=== PATIENT | female | born 1975 | race Caucasian/White ===

== ENCOUNTER → 2017-12-17 15:01 | Outpatient (CLI) | payer OTHER, SELFPAY ==
[2017-12-17 17:40] LABS: Cholesterol 147 mg/dL (200); Glucose 86 mg/dL (74-106); High Density Lipoprotein 36 mg/dL; Triglycerides 110 mg/dL; Very Low Density Lipoprotein 22 mg/dL (5-40)
== END ==
PROVIDERS: Family Provider Family Medicine; PCP Family Medicine; Visit Provider Family Medicine
DX: Z13.1 Encounter for screening for diabetes mellitus (principal); Z13.220 Encounter for screening for lipoid disorders
CPT/HCPCS: 36415; 80061; 82947

== ENCOUNTER 2018-02-25 11:55 | Emergency (ER) | payer OTHER, SELFPAY ==
[2018-02-25 11:56] VITALS: BP 147/69; PULSE 104; RESP 16; TEMP 36.9; O2SAT 99; BMI 33.3
--- NOTE | 2018-02-25 12:28 | ED.VIS.GEN ---
History of Present Illness Chief Complaint: Back Informant: Patient Onset: Month(s) - 1-2 Context: Gradual Onset - does not recall any injury/fall Timing: Continuous Quality: ache/burn Location: R buttock and down RLE Current Severity: Mild Maximum Severity: Severe Worsened by: walking and at times sitting Relieved by: nothing in particular. NSAIDS not helping acutely. Associated Symptoms: no bowel or bladder dysfunction. occ tingling right foot. no saddle numbnes Narrative: Has seen her doctor several times for this problem, which she describes as sciatica pain. Has never had this before, but it has been going on for a month or 2 now. Seem to get a little worse over the weekend although she has no new symptoms. Refer to physical therapy and getting ready to start it tomorrow, but referred here today because her pain was worse. She states that it seems to be random, but right now, it really is not bothering her very much. Past Medical History - Allergies and Home Meds Allergies/Adverse Reactions: Allergies No Known Allergies Allergy (Verified 02/25/18 11:58) Home Medications: Home Medications Medication Instructions Recorded traMADol [Ultram] 50 mg PO Q4H PRN PRN 3 Days #20 tab 02/25/18 Primary Care Physician: Heriberto Kennedy MD [Primary Care Provider] - Past Medical History: None Smoking Status: Never smoker Drugs: None Review of Systems All systems negative except as indicated Musculoskeletal: Reports: Back pain Neurological: Reports: Parasthesia, Numbness. Denies: Headache, Weakness Physical Exam Vital Signs/Narrative: Vital Signs Temp Pulse Resp BP Pulse Ox 02/25/18 11:56 98.4 F 104 H 16 147/69 H 99 Inital Vital Signs reviewed: Yes General: Well nourished, Well developed, - - nad Head: Normocephalic, Atraumatic Back: Normal Inspection - no rash. Negative for: Nontender - mildly tender in right piriformis; otherwise NT throughout, CVA tenderness, Spinal tenderness Extremities: Nontender - negative bilat straight leg raises while sitting, including neg cross SLR, No edema, - - negative bilat straight leg raises while sitting, including neg cross SLR> Skin: Normal color, No rash Neurological: Alert, Oriented x3, Cranial nerves II-XII grossly intact, Normal Strength, Normal Sensation, Normal Gait Psychological: Normal affect Diagnostic/Tx/Re-eval - Medical Decision Making We discussed pluses and minuses of Ultram, which I think is a reasonable prescription to write her for now, to use as needed for breakthrough pain, advised also to continue using NSAIDs. She is comfortable with that plan. She does not require any medication here since her pain is minimal right now. ED Disposition - Plan for ED Patient: Disposition: Home or Assisted Living Chief Complaint: Back Diagnosis: Sciatica, right side Instructions: ED Sciatica Prescriptions: traMADol [Ultram] 50 mg PO Q4H PRN PRN 3 Days #20 tab PRN Reason: Pain Referrals: Heriberto Kennedy MD [Primary Care Provider] - 1 Week if not improving
== END 2018-02-25 12:50 | disposition home or self-care (01) ==
LOC: ED 12:40
PROVIDERS: Emergency Provider Emergency Medicine; Family Provider Family Medicine; PCP Family Medicine
DX: M54.41 Lumbago with sciatica, right side (principal)
CPT/HCPCS: 99282

== ENCOUNTER 2018-03-15 08:00 | Outpatient (RCR) | payer OTHER, SELFPAY ==
--- NOTE | 2018-02-26 16:01 | HP.PTEVAL_ITS ---
Patient's Visit Information TEREZA GUERRA is a 42 year old F referred to Physical Therapy by Heriberto Kennedy MD with a diagnosis of sciatica. Date of Evaluation: 02/26/18 Physical Therapist: Elyssa Long - Visit Plan Frequency: 2-3x /Week Duration: 4-6 Weeks Plan: 2-3X/ week for 4-6 weeks for centralization of symptoms, core stability, psotural exercises, HEP and modalities PRN - Subjective Subjective: Pt reports taht she has had R sciatic pain on R side since mid december. She took a course of prenizone and did not help at all. She has been on 600 mg IBPRo 3X/ day since mid last week. She has been doing SKC, and piriformis sitting in chair, lunge stretch on floor and the pain continues to persist. It is worse in the morning and by late afternoon gets worse. Also did some chiropractor and did not work. Now ordering PT. The pain is in R LB and hip and raidiates into calf and the R foot gets tingly and not completely numb. Severe in mornings that she can not walk until she gets it stretched out. is considering MRI if PT does not help. She did go to the ER yesterday and they gave her Ultram and told her to do PT. 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 Pt is sleeping intermittant and tries to sleep with pillow under the knees or between knees. Stairs: pain comes and goesfor no rhyme or reason. Standing is better than sitting. She sleeps on her back. Pt feels she shifts her madan to her L leg with gait. - Pain Back pain Pain Intensity (Out of 10): 4 Pain Intensity Range: 10 R hip pain Pain Intensity (Out of 10): 4 Pain Intensity Range: 10 R calf pain Pain Intensity (Out of 10): 5 - Objective Patella DTr's R 1+/3 and L 2+/3. Trunk AROM: flexion 100%, Ext 25%, SB B 75%, Rot B 75%. LE MMT: hip flex B 4/5, Knee flex B 4/5, knee ext B 4/5, R hip abd 4-/5 and L 4/5, hip ext B 4-/5. Prone lying increased R sided buttock pain and across LB. Prone lying with 1 pillow under the abdomin.... pain in the lateral thigh and maybe a slight feeling the calf. Prone lying wth 2 pillows under abdomin... decreased R calf pain and pain stayed R buttock and L-spine pain. Had pt lye on 2 pillows under abdomin with E-stim and ice X 15 min in Prone... pt got up and had just R hip pain - Goals Goal 1:: I HEP Goal Time Frame: 4-6 Weeks Goal 2:: Be able to get up in the morning with less than 5/10 pain and be able to start day quicker Goal Time Frame: 4-6 Weeks Goal 3:: Sit with upright posture during treatment sessions. Goal Time Frame: 4-6 Weeks Goal 4:: Be able to sit painfree for about 30 min before any hint of pain or having to change positions comes on. Goal Time Frame: 4-6 Weeks - Rehabilitation Potential Rehabilitation Potential: Good - Anticipated Interventions Patient/Client Instruction: Educate patient on: Condition, Plan of Care For the Purpose of:: To decrease pain, To decrease swelling/inflammation, To increase ROM, To improve nutrient delivery to tissue, To improve muscle performance and motor function, To improve ability to perform ADL's, To increase tolerance to activity/condition/position, To improve performance and independence with ADL's, To improve health of tissue, To decrease soft tissue restriction, To increase flexibility/ROM Therapeutic Exercise to Include: Strength training, Body mechanics, Postural training, Neuromotor development, Active ROM, Dynamic Lumbar Stabilization, Chey Exercises For the Purpose of:: To decrease pain, To decrease swelling/inflammation, To increase ROM, To improve nutrient delivery to tissue, To increase oxygenation perfusion, To improve muscle performance and motor function, To improve ability to perform ADL's, To increase tolerance to activity/condition/position, To improve ability of physical actions for home/community/work/leisure Manual Therapy Techniques to Include: Mobilization, Soft tissue mobilization For the Purpose of:: To decrease pain, To decrease swelling/inflammation, To increase ROM, To improve nutrient delivery to tissue, To increase oxygenation perfusion, To improve muscle performance and motor function, To improve ability to perform ADL's, To increase tolerance to activity/condition/position, To decrease soft tissue restriction IF ES: Yes Cryotherapy (ice pack, ice massage): Yes Thermo therapy (hot pack): Yes Ultrasound (thermal/non thermal): Yes For the Purpose of:: To decrease pain, To decrease swelling/inflammation, To increase ROM, To improve nutrient delivery to tissue, To improve muscle performance and motor function Thank you for the opportunity to evaluate your patient. For Medicare and Medicare HMO plans, please review the plan of care and approve it. It will need to be FAXED BACK to us at [phone] for Medicare purposes. Please let me know if there are questions or concerns regarding this plan of care. Physician Signature: Date:
--- NOTE | 2018-03-15 08:25 | HP.PTDCSUM ---
HP - PT D/C Summary It has been my pleasure to treat TEREZA GUERRA under orders from Heriberto Kennedy MD, for the diagnosis of sciatica for a total of 6 visit(s). Discharge Date: Please see the following information for a summary of their discharge status. - Subjective Subjective: Pt has seen a difference with mattress and box spring. Pt reports that she was trying to sleep the last night and tried to lay on side with pillow between knees and pain was all the way down the leg and into the toes with tingling and she could not get it to calm down. Pt reports that now she is not crawling out of bed but that is all that has changed. - Pain Back pain Pain Intensity (Out of 10): 4 R hip pain Pain Intensity (Out of 10): 4 R calf pain Pain Intensity (Out of 10): 2 - Overall Improvement % Improvement: 10 - Objective Objective/Function: + SLUMP test. -SLR test. Pt geels gastroc towel stretch. Trunk AROM: flexion 100%, Ext 50%, SB B 75% - Goals Goal 1:: I HEP Goal Progress: Goal Met Goal 2:: Be able to get up in the morning with less than 5/10 pain and be able to start day quicker Goal Progress: Not Progressing Goal 3:: Sit with upright posture during treatment sessions. Goal Progress: Progressing Goal 4:: Be able to sit painfree for about 30 min before any hint of pain or having to change positions comes on. Goal Progress: Progressing - Plan Plan: Return back to family physician for possible MRI/reassessment. We are able to manipulate her pain and make it a little better but it always comes back. Pt to continue with LAQ nerve root stretches, centralization for temp pain relief, and core stability. Will hold chart open until after physician reassessment. - D/C Information If there are questions or concerns regarding this patient's physical therapy, please feel free to call me at [phone]. Thank you for the referral of this patient. Sincerely, Elyssa Long
== END 2018-03-15 11:45 | disposition home or self-care (01) ==
LOC: PT 08:00
PROVIDERS: Family Provider Family Medicine; PCP Family Medicine; Visit Provider Family Medicine
DX: M54.31 Sciatica, right side (principal)
CPT/HCPCS: 97014; 97110; 97140; 97161; 97530; G0283

== ENCOUNTER → 2018-03-20 15:52 | Outpatient (CLI) | payer OTHER, SELFPAY ==
--- NOTE | 2018-03-20 11:12 | VDLE_ITS ---
Reason For Study: RLE pain/swelling RIGHT LEFT GSV is normal. CFV is compressible, spontaneous, phasic, CFV is compressible, spontaneous, phasic, competent, and demonstrates normal competent and demonstrates normal augmentation. augmentation. FV is compressible, spontaneous, phasic, competent and demonstrates normal augmentation. POP V is compressible, spontaneous, phasic, competent and demonstrates normal augmentation. T/P Trunk is compressible. PTV is compressible. RT PerV is compressible. Procedure Exam performed in department. The exam was diagnostic. A preliminary report was called and/or faxed to Dr. Kennedy @ [phone] @ 4:10 pm. Interpretation Summary Deep veins of the right lower extremity are patent and compressible segmentally. There is no evidence of right lower extremity deep vein thrombosis. Valvular competence appears intact within the proximal deep venous system on the right . The right greater saphenous vein appears patent and compressible segmentally. Ordering Physician: Heriberto Kennedy Referring Physician: Heriberto Kennedy Performed By: Awa Arenas, PHILIPPE, RVT
--- NOTE | 2018-03-20 15:52 | DT_ITS ---
This patient was seen during an EMR downtime March 18, 2018 - March 25, 2018. This patient may have a combination of paper and electronic documentation or all paper documentation. All documentation is viewable within the e-chart portion of [facility] for each patient visit.
== END ==
PROVIDERS: Family Provider Family Medicine; PCP Family Medicine; Visit Provider Family Medicine
DX: M79.604 Pain in right leg (principal); R60.9 Edema, unspecified
CPT/HCPCS: 93971

== ENCOUNTER → 2018-03-27 17:46 | Outpatient (CLI) | payer OTHER, SELFPAY ==
--- NOTE | 2018-03-27 17:51 | MRI_ITS ---
STUDY: MRI LUMBAR SPINE WITHOUT CONTRAST REASON FOR EXAM: Female, 42 years old. Low back pain radiating down right leg TECHNIQUE: Standardized fat and water weighted pulse sequences were obtained in the sagittal and axial planes. COMPARISON: None FINDINGS: T12-L1: Normal endplates. Normal disc height, hydration and morphology. Normal bilateral facet joints. Normal central canal and bilateral lateral recesses. Normal bilateral intervertebral neural foramina. Normal lumbar lordosis. There is no substantial scoliosis. Normal conus medullaris that terminates at the L1-2: Normal endplates. Normal disc height, hydration and morphology. Normal bilateral facet joints. Normal central canal and bilateral lateral recesses. Normal bilateral intervertebral neural foramina. L2-3: Normal endplates. Normal disc height, hydration and morphology. Normal bilateral facet joints. Normal central canal and bilateral lateral recesses. Normal bilateral intervertebral neural foramina. L3-4: Normal endplates. Normal disc height, hydration and morphology. Normal bilateral facet joints. Normal central canal and bilateral lateral recesses. Normal bilateral intervertebral neural foramina. L4-5: Grade 1 spondylolisthesis. Normal endplates. Normal disc height, hydration and minor bulging disc osteophyte complex.. Bilateral facet arthropathy and small synovial cyst on the right.. Normal central canal. Moderate left lateral recess stenosis and severe narrowing on the right exaggerated by shortened pedicles.. Normal bilateral intervertebral neural foramina. L5-S1: Normal endplates. Normal disc height, desiccation and small right posterolateral/foraminal disc protrusion.. Minor facet arthropathy.. Normal central canal. Moderate to severe right lateral recess and severe foraminal stenosis. Normal visualized sacral ala. Small ovarian cyst is noted on the right. Normal visualized paraspinous soft tissue structures. MRI/Spine Lumbar (Routine) IMPRESSION: Spinal stenosis at L4-5 greater on the right secondary to disc disease and bony hypertrophy as well as a right sided synovial cyst Right lateral recess and neural foraminal stenosis at L5-S1 due to right posterolateral/foraminal disc protrusion and minor facet arthropathy Other findings as above Electronically Signed: Sathya Ray MD at 20:07 EDT , Service support ,
== END ==
PROVIDERS: Family Provider Family Medicine; PCP Family Medicine; Visit Provider Family Medicine
DX: M54.32 Sciatica, left side (principal)
CPT/HCPCS: 72148

== ENCOUNTER → 2018-04-23 08:26 | Outpatient (CLI) | payer OTHER, SELFPAY ==
--- NOTE | 2018-04-23 08:30 | BD_ITS ---
STUDY: DUAL ENERGY X-RAY ABSORPTIOMETRY / DXA REASON FOR EXAM: Female, 42 years old. Use of steroid inhaler. TECHNIQUE: Bone Mineral Density (BMD) measurements of lumbar spine and bilateral hips were obtained. COMPARISON: None. FINDINGS: Lumbar Spine (L1-L4): g/cm2 (1.347) / T-score (1.4) / Z-score (1.4) Findings are suggestive of normal bone density with a low fracture risk. Left Femur Total: g/cm2 (1.188) / T-score (1.4) / Z-score (1.7) Left Femoral Neck: g/cm2 (1.070) / T-score (0.2) / Z-score (0.8) Right Femur Total: g/cm2 (1.150) / T-score (1.1) / Z-score (1.4) Right Femoral Neck: g/cm2 (1.091) / T-score (0.4) / Z-score (0.9) BD/Dexa Bone Density Study IMPRESSION: The patient is considered normal as outlined below according to World Eric Organization (WHO) criteria with a low fracture risk. Reference Information: The T-score is the number of standard deviations above or below the standard which is normal for young adults at their peak bone mineral density. The World Health Organization (WHO) interprets the T-scores as follows: Above -1 Normal bone density Between -1 and -2.5 Osteopenia Equal to / or below -2.5 Osteoporosis As a practical clinical guideline, osteopenia may be graded as follows: Mild -1 through -1.5 Moderate -1.6 through -2.0 Severe -2.1 through -2.4 The Z-score is the number of standard deviations above or below age-matched controls. A Z-score of less than -1.5 would be considered abnormal. References: 1. NIH Osteoporosis and Related Bone Diseases http://www.osteo.org 2. International Society for Clinical Densitometry http://www.iscd.org 3. National Osteoporosis Foundation http://www.nof.org Electronically Signed: J Luis Kaye MD at 9:19 EDT Tel [phone], Service support ,
== END ==
PROVIDERS: Family Provider Family Medicine; PCP Family Medicine; Visit Provider Orthopaedic Surgery
DX: M89.9 Disorder of bone, unspecified (principal)
CPT/HCPCS: 77080

== ENCOUNTER 2018-09-04 10:30 | Outpatient (RCR) | payer OTHER, SELFPAY ==
--- NOTE | 2018-06-26 18:58 | HP.PTEVAL_ITS ---
Patient's Visit Information TEREZA GUERRA is a 42 year old F referred to Physical Therapy by Zuri Mccormick, with a diagnosis of s/p fusion of L4-L5 and hemilaminectomy L3 and L5 and S1 on Jun 05, 2018.. Date of Evaluation: 06/26/18 Physical Therapist: Elyssa Long - Visit Plan Frequency: 2x /Week Duration: 2 Months Plan: 2-3X/ week for 4- 6 weeks for. ++Able to start ROM at week 3 (today) and wean brace as tolerated. - Subjective Subjective: The whole month of March she could hardly get out of bed and she had an MRI and her L4 was slipped fw and she had a HD. She had a fusion and cage Jun 05, 2018. She is feeling ok at this point. She gets tired and sore. She has been walking. She is not allowed to twist, bend or lifting greater than 10# . She goes back to see Jul 18. She is wearing a brace while she is up. She has no leg pain. By the end of the day she will have a little tingling in her foot and not as bad as what it was in the Spring. Stairs: she has a ranch and does one or two steps in and out of the house and has not attempted to go down to the basement. She is doing ok getting in and out of the shower and still uses the seat. She has not driven yet but is able to when she feels comfortable. She is not sleeping at night because of pain and discomfort and usually gets a fresh ice pack...she is sleeping in her bed. - Pain back Pain Intensity (Out of 10): 4 - Objective - SLR B. 0/3 patellar DTR's. Trunk AROM: flexion 15%, ext (less than neutral) , SB B 15%. Gait: very guarded with no trunk movement, short stride decreased hip extension. LE MMT: able to do 50% normal ROM bridge, Hip abd B 4-/5, hip flex B 4-/5, B knee ext 4/5, B knee flex 4/5. Able to heel and toe raise. Stairs: up and down recip with a railing. Rolling: very guarded and slow to transition. - Goals Goal 1:: I HEP Goal Time Frame: 4-6 Weeks Goal 2:: Be able to sleep through the night without pain. Goal Time Frame: 4-6 Weeks Goal 3:: Be able to walk up and down the stairs without a railing recip Goal Time Frame: 4-6 Weeks Goal 4:: Be able to RTW without pain Goal Time Frame: 4-6 Weeks Goal 5:: Increase trunk AROM to 75% normal ROM Goal Time Frame: 6-8 Weeks - Rehabilitation Potential Rehabilitation Potential: Good - Anticipated Interventions Patient/Client Instruction: Educate patient on: Condition, Plan of Care For the Purpose of:: To decrease pain, To decrease swelling/inflammation, To increase ROM, To improve nutrient delivery to tissue, To improve muscle performance and motor function, To improve ability to perform ADL's, To increase tolerance to activity/condition/position, To improve performance and independence with ADL's, To improve gait and locomotor functions, To improve health of tissue, To decrease soft tissue restriction, To increase flexibility/ ROM Therapeutic Exercise to Include: Strength training, Body mechanics, Postural training, Flexibilty training, Gait and locomotor training, Neuromotor development, Active ROM, Dynamic Lumbar Stabilization For the Purpose of:: To decrease pain, To decrease swelling/inflammation, To increase ROM, To improve nutrient delivery to tissue, To increase oxygenation perfusion, To improve muscle performance and motor function, To improve ability to perform ADL's, To increase tolerance to activity/condition/position, To improve performance and independence with ADL's, To decrease level of supervision to perform tasks, To improve ability of physical actions for home/ community/work/leisure, To improve gait and locomotor functions, To improve health of tissue, To decrease soft tissue restriction, To increase flexibility/ ROM IF ES: Yes Cryotherapy (ice pack, ice massage): Yes Thermo therapy (hot pack): Yes For the Purpose of:: To decrease pain, To decrease swelling/inflammation, To increase ROM, To improve nutrient delivery to tissue Thank you for the opportunity to evaluate your patient. For Medicare and Medicare HMO plans, please review the plan of care and approve it. It will need to be FAXED BACK to us at [phone] for Medicare purposes. Please let me know if there are questions or concerns regarding this plan of care. Physician Signature: Date:
--- NOTE | 2018-09-04 13:05 | HP.PTDCSUM_ITS ---
HP - PT D/C Summary It has been my pleasure to treat TEREZA GUERRA under orders from Zuri Mccormick, , for the diagnosis of s/p fusion of L4-L5 and hemilaminectomy L3 and L5 and S1 on Jun 05, 2018. for a total of 18 visit(s). Discharge Date: 09/04/18 Please see the following information for a summary of their discharge status. - Subjective Subjective: Pt reports that she has been going without her brace and she has been more sore. She reports that she needs to do her exercises at home more often. cleared her to do more bending/twisting. Weight lifting restriction is to 20# now. - Pain back Pain Intensity (Out of 10): 2 - Overall Improvement % Improvement: 100 - Objective Objective/Function: Stairs: up ans down with rail recip. Pt is able to merchandise pickup/receiving associate object from the floor with squatting position. Trunk AROM: flex 90%, EXt 75%, SB B 75%. Not Sleeping through the night because of discomfort - Goals Goal 1:: I HEP Goal Progress: Goal Met Goal 2:: Be able to sleep through the night without pain. Goal Progress: Progressing Goal 3:: Be able to walk up and down the stairs without a railing recip Goal Progress: Goal Met Goal 4:: Be able to RTW without pain Goal Progress: Progressing Goal 5:: Increase trunk AROM to 75% normal ROM Goal Progress: Goal Met - Plan Plan: DC PT to HEP - D/C Information Discharge Comments: DC PT to HEP If there are questions or concerns regarding this patient's physical therapy, please feel free to call me at [phone]. Thank you for the referral of this patient. Sincerely, Elyssa Long
== END 2018-09-04 18:40 | disposition home or self-care (01) ==
LOC: PT 10:30
PROVIDERS: Family Provider Family Medicine; PCP Family Medicine; Visit Provider Nurse Practitioner Acute Care
DX: M43.16 Spondylolisthesis, lumbar region (principal); M43.26 Fusion of spine, lumbar region; Z98.1 Arthrodesis status
CPT/HCPCS: 97110; 97161; 97530

== ENCOUNTER 2024-06-09 08:00 | Outpatient (RCR) | payer OTHER, SELFPAY ==
--- NOTE | 2024-05-13 08:14 | HP.PTEVAL ---
Patient's Visit Information Visit Information Visit Information: TEREZA GUERRA is a 48 year old F referred to Physical Therapy by Dr. Rolf Milton MD with a diagnosis of Sprain of L knee. Date of Evaluation: 05/13/24 Physical Therapist: LEEANNE Fink Visit Plan Frequency: 3x /Week Duration: 6 Weeks Plan: 3X/ week for 4 weeks for L knee AROM, L hip and knee strengthening, stair progression exercises, stair negotiation, balance and proprioception, gait training with HEP HEP: SLR, Bridges, QS Subjective Subjective: On April 15 she reports that her knee cap moved up on a picnic table. She went to [facility] and Dr Milton said it was ok. She has pain up and down stairs and pain in the evening. If she sits too long it will get achy. This was at work. She on Work[employer]. She is back to full duty at this point. They did x-rays and those looked normal. She uses a pillow between her knees and hurts to lay on both sides. Pain L knee pain: Pain Intensity (Out of 10): 2 Pain Intensity Range: 8 Comment: 7-8/10 with steps Objective Objective: Gait: walks with slight decrease stance time on the L Pt is able to heel and toe raises R knee AROM -2 to 130 L knee AROM 0 to 135 R hip flex 8.5#, R knee ext 23.7, R knee flex 9.9, R hip abd 10.2 L hip flex 10#, L knee ext 14.9 L knee flex 9.5, and L hip abd 9.6 Pt is able to do 3/4 normal ROM bridge R SLB 30 seconds and L SLB 21 seconds with slight discomfort Pt is able to do X 10 L SLR (with increase burning) and on the R X 10 on the R with no burning Stairs: Pt is able to go up and down recip with 2 hand rails with discomfort ascending with the L and down with the L. Was sore after doing the steps Balance/Special Test Scores Lower Extremity Functional Score: 49 Goals Goal 1:: I HEP Goal Time Frame: 4-6 Weeks Goal 2:: Increase L Knee AROM 0-135 Goal Time Frame: 4-6 Weeks Goal 3:: Be able to go up and down the steps recip with 1 hand rail with no pain and no hesitation Goal Time Frame: 4-6 Weeks Goal 4:: Be able to SLB X 30 seconds on the L Goal Time Frame: 4-6 Weeks Rehabilitation Potential Rehabilitation Potential: Good Anticipated Interventions Patient/Client Instruction: Educate patient on: Condition and Plan of Care For the Purpose of:: To decrease pain, To increase ROM, To improve nutrient delivery to tissue, To improve muscle performance and motor function, To improve ability to perform ADL's, To increase tolerance to activity/condition/position, To improve performance and independence with ADL's, To improve gait and locomotor functions, To improve health of tissue and To improve balance Therapeutic Exercise to Include: Strength training, Balance training, Gait and locomotor training and Active ROM For the Purpose of:: To decrease pain, To increase ROM, To improve nutrient delivery to tissue, To improve muscle performance and motor function, To improve ability to perform ADL's, To increase tolerance to activity/condition/position, To improve performance and independence with ADL's, To improve ability of physical actions for home/community/work/leisure and To improve gait and locomotor functions Functional Training to Include: Gait training For the Purpose of:: To improve gait and locomotor functions Text: Thank you for the opportunity to evaluate your patient. For Medicare and Medicare HMO plans, please review the plan of care and approve it. It will need to be FAXED BACK to us at [phone] for Medicare purposes. For Medicare only, by signing this I certify the plan of care. Please let me know if there are questions or concerns regarding this plan of care. Physician Signature: Date:
--- NOTE | 2024-06-09 09:28 | HP.PTDCSUM_ITS ---
Discharge Summary D/C summary: It has been my pleasure to treat TEREZA GUERRA referred by Dr. Rolf Milton MD, with the diagnosis of Sprain of L knee for a total of 12 visit(s). Discharge Date: 06/09/24 Please see the following information for a summary of their discharge status. Subjective Subjective: Pt feels good. Her L knee will bother her if she overdoes it but for the most part she is feeling good. She feels comfortable to continue with her HEP at home. Pain L knee pain: Pain Intensity (Out of 10): 0 Overall Improvement % Improvement: 90 Objective Objective/Function: L KNEE 0-135 Stairs: Up and down recip with 1 hand rail SLB L 30 sec Goals Goal 1:: I HEP Goal Progress: Goal Met Goal 2:: Increase L Knee AROM 0-135 Goal Progress: Goal Met Goal 3:: Be able to go up and down the steps recip with 1 hand rail with no pain and no hesitation Goal Progress: Goal Met Goal 4:: Be able to SLB X 30 seconds on the L Goal Progress: Goal Met Plan Plan: ISSUED BLUE BAND FOR HEP. DC PT to HEP. D/C Information Discharge Comments: DC PT to HEP d/c sentence: If there are questions or concerns regarding this patient's physical therapy, kian lyn feel free to call me at [phone]. Thank you for the referral of this patient. Sincerely, Elyssa Long, MPT Balance/Gait/Functional tests Balance/Special Test Scores Lower Extremity Functional Score: 65 Improvement % Improvement: 90
== END 2024-06-09 10:00 | disposition home or self-care (01) ==
LOC: PT 08:00
PROVIDERS: PCP Family Medicine; Referring Provider Orthopaedic Surgery; Visit Provider Orthopaedic Surgery
DX: S83.8X2D Sprain of other specified parts of left knee, subsequent encounter (principal)
CPT/HCPCS: 97110; 97161; 97530

== ENCOUNTER 2025-03-03 07:00 | Outpatient (RCR) | payer OTHER, SELFPAY ==
--- NOTE | 2025-02-10 08:53 | HP.PTEVAL_ITS ---
Patient's Visit Information Visit Information Visit Information: TEREZA GUERRA is a 49 year old F referred to Physical Therapy by JANICE NGO with a diagnosis of L elbow pain. Date of Evaluation: 02/10/25 Physical Therapist: LEEANNE Fink Visit Plan Frequency: 1-2x /Week Duration: 4 Weeks Plan: pt is doing [place] package 1-2X/ week for 4 weeks for US to the L medial wrist flexor insertion, MT to the same, eccentrics wrist flexor and radial deviation, wrist flexor stretches with HEP HEP: wrist flexion stretches Subjective Subjective: She is R handed. She fell on ice in Nov and had a little bit of bruising on the L elbow. She did not get x-rays. She has medial knee pain. Certain motions that make it worse. To hold or lift something or push in a drawer hurts. Sometimes it tingles. Sometimes she waked up and it will be tingling. Her grib is poor. Pt is doing an insurance SWORD program through her insurance. Really sore if she uses it too much. IBPRof helps. She has not iced. Pain L elbow pain: Pain Intensity (Out of 10): 2 Objective Objective: R handed: R wagon driver strength 60 and L 65# R bicep 8.8 and L 7.1 R wrist flex 8.6 and L 7.1 R wrist extension 8.9 and L 8.2 Palpation: tender at wrist flexor insertion and along the wrist flexor tendons Balance/Special Test Scores Quick DASH Score: 34.0900 Goals Goal 1:: I HEP Goal Time Frame: 4-6 Weeks Goal 2:: Be able to open a pickle jar with 50% less pain Goal Time Frame: 4-6 Weeks Goal 3:: Be able to push in a chair or drawer without having L elbow pain Goal Time Frame: 4-6 Weeks Rehabilitation Potential Rehabilitation Potential: Good Anticipated Interventions Patient/Client Instruction: Educate patient on: Condition and Plan of Care For the Purpose of:: To decrease pain, To decrease swelling/inflammation, To increase ROM, To improve nutrient delivery to tissue, To improve muscle performance and motor function, To improve ability to perform ADL's, To increase tolerance to activity/condition/position, To improve performance and independence with ADL's, To decrease level of supervision to perform tasks, To improve ability of physical actions for home/community/work/leisure, To improve health of tissue, To decrease soft tissue restriction and To increase flexibility/ROM Therapeutic Exercise to Include: Strength training, Flexibilty training, Neuromotor development, Passive ROM and Active ROM For the Purpose of:: To decrease pain, To increase ROM, To improve nutrient delivery to tissue, To improve muscle performance and motor function, To improve ability to perform ADL's, To increase tolerance to activity/condition/position, To improve performance and independence with ADL's, To improve health of tissue, To decrease soft tissue restriction and To increase flexibility/ROM Manual Therapy Techniques to Include: Passive ROM and Soft tissue mobilization For the Purpose of:: To decrease pain, To increase ROM, To improve nutrient delivery to tissue, To improve muscle performance and motor function, To improve ability to perform ADL's, To increase tolerance to activity/condition/position, To improve health of tissue, To decrease soft tissue restriction and To increase flexibility/ROM Cryotherapy (ice pack, ice massage): Yes Ultrasound (thermal/non thermal): Yes For the Purpose of:: To decrease pain, To decrease swelling/inflammation, To increase ROM, To improve nutrient delivery to tissue, To improve muscle performance and motor function, To improve ability to perform ADL's, To increase tolerance to activity/condition/position, To improve health of tissue, To decrease soft tissue restriction and To increase flexibility/ROM Text: Thank you for the opportunity to evaluate your patient. For Medicare and Medicare HMO plans, please review the plan of care and approve it. It will need to be FAXED BACK to us at [phone] for Medicare purposes. For Medicare only, by signing this I certify the plan of care. Please let me know if there are questions or concerns regarding this plan of care. Physician Signature: Date:
--- NOTE | 2025-03-03 07:44 | HP.PTDCSUM ---
Discharge Summary D/C summary: It has been my pleasure to treat TEREZA GUERRA referred by JANICE [employer], with the diagnosis of L elbow pain for a total of 5 visit(s). Discharge Date: 03/03/25 Please see the following information for a summary of their discharge status. Subjective Subjective: Pt reports that she is 90% better. She reports that she did a lot of cleaning at her kids apartment and her elbow started to hurt but it is better. She will continue with the stretching and strengthening at home and continue to wear her brace. Pain L elbow pain: Pain Intensity (Out of 10): 1 Overall Improvement % Improvement: 90 Objective Objective/Function: Pt had no pain with exercises today. Functional improvements have been made. Goals Goal 1:: I HEP Goal Progress: Goal Met Goal 2:: Be able to open a pickle jar with 50% less pain Goal Progress: Progressing Goal 3:: Be able to push in a chair or drawer without having L elbow pain Goal Progress: Progressing Plan Plan: pt is doing [place] package 1-2X/ week for 4 weeks for US to the L medial wrist flexor insertion, MT to the same, eccentrics wrist flexor and radial deviation, wrist flexor stretches with HEP HEP: wrist flexion stretches D/C Information Discharge Comments: DC PT to HEP d/c sentence: If there are questions or concerns regarding this patient's physical therapy, please feel free to call me at [phone]. Thank you for the referral of this patient. Sincerely, Elyssa Long, MPT Balance/Gait/Functional tests Balance/Special Test Scores Quick DASH Score: 13.6350 Improvement % Improvement: 90
== END 2025-03-03 12:40 | disposition home or self-care (01) ==
LOC: PT 07:00
PROVIDERS: PCP Nurse Practitioner Family; Referring Provider Nurse Practitioner Family; Visit Provider Nurse Practitioner Family
DX: M25.522 Pain in left elbow (principal)
CPT/HCPCS: 97035; 97110; 97140; 97161